=== PATIENT | male | born 1990 | race Caucasian/White ===

== ENCOUNTER 2017-09-13 11:12 | Emergency (ER) | payer OTHER ==
[~2017-09-13] VITALS: Ht 188 cm; Wt 83.9 kg
[~2017-09-13 11:12] MED LIST: DOXYCYCLINE HYC50 MG PO
[2017-09-13] MEDS ORDERED: NORCO 5-325 TA1 EACH PO (11:23)
[2017-09-13] MEDS ORDERED: ONDANSETRON ODT8 MG PO (13:16)
--- NOTE | 2017-09-13 14:48 | EKG ---
[facility] [address] [facility] [place] [address] Signed Normal sinus rhythm ST elevation, probably due to early repolarization Borderline ECG No previous ECGs available Confirmed by JARVIS TILLMAN MD ([id number]) on 09/13/2017 2:48:04 PM Electronically Signed By: JARVIS TILLMAN MD 09/13/17 1448 PATIENT NAME: STACEY FUNES CHELLY Electrocardiogram DATE OF : 86 PHYSICIAN: JARVIS TILLMAN MD REPORT #: [id number] REPORT IS CONFIDENTIAL AND NOT TO BE RELEASED WITHOUT AUTHORIZATION
== END 2017-09-13 13:22 | disposition home or self-care (01) ==
LOC: ED 11:12
DX: R07.89 Other chest pain (principal); M54.2 Cervicalgia; Z88.5 Allergy status to narcotic agent; Z79.899 Other long term (current) drug therapy
CPT/HCPCS: 93005; 93010; 99284

== ENCOUNTER 2017-09-27 12:47 | Emergency (ER) | payer OTHER ==
[~2017-09-27] VITALS: Ht 188 cm; Wt 83.9 kg
[~2017-09-27 12:47] MED LIST changes: +NORCO 5-325 TA1 EACH PO; +ONDANSETRON ODT8 MG PO
[2017-09-27] MEDS ORDERED: LIDOCAINE1 EACH TD (13:30)
[2017-09-27] MEDS ORDERED: DULOXETINE HCL60 MG PO (13:31)
[2017-09-27] MEDS ORDERED: CYCLOBENZAPRINE10 MG PO (13:31)
[2017-09-27] MEDS ORDERED: METHYLPREDNISOLO4 M1 PO (13:31)
[2017-09-27] MEDS ORDERED: TIZANIDINE HCL4 MG PO (13:32)
[2017-09-27] MEDS ORDERED: MELOXICAM15 MG PO (13:32)
--- NOTE | 2017-09-27 19:18 | EKG ---
[facility] [address] [facility] [place] [address] Signed Normal sinus rhythm with sinus arrhythmia Nonspecific ST and T wave abnormality Abnormal ECG When compared with ECG of 13-SEP-2017 11:17, No significant change was found Confirmed by JARVIS TILLMAN MD ([id number]) on 09/27/2017 7:18:04 PM Electronically Signed By: JARVIS TILLMAN MD 09/27/17 1918 PATIENT NAME: FUNESSTACEY Electrocardiogram DATE OF : 86 PHYSICIAN: JARVIS TILLMAN MD REPORT #: [id number] REPORT IS CONFIDENTIAL AND NOT TO BE RELEASED WITHOUT AUTHORIZATION
== END 2017-09-27 15:04 | disposition home or self-care (01) ==
LOC: ED 12:47
DX: R07.9 Chest pain, unspecified (principal); Z79.899 Other long term (current) drug therapy; Z88.5 Allergy status to narcotic agent
CPT/HCPCS: 71010; 80053; 84484; 85025; 93005; 93010; 96374; 96375; 99284; J1885; J2405

== ENCOUNTER 2021-10-18 05:58 | Emergency (ER) | payer OTHER ==
[~2021-10-18] VITALS: Ht 188 cm; Wt 83.9 kg
[~2021-10-18 05:58] MED LIST changes: +CYCLOBENZAPRINE10 MG PO; +DULOXETINE HCL60 MG PO; +LIDOCAINE1 EACH TD; +MELOXICAM15 MG PO; +METHYLPREDNISOLO4 M1 PO; +TIZANIDINE HCL4 MG PO
--- OUTSIDE RECORDS SUMMARY | 2021-10-18 06:02 | XMS ---
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 Emily VISIT COUNT (12 MO.) [address] TOTAL 2 NOTE: Visits indicate total known visits. ED/UCC VISIT TRACKING (12 MO.) 10/18/2021 05:59 [facility] [place] TYPE: Emergency COMPLAINT: - CHEST AND ABDOMINAL PAIN 10/05/2021 18:41 [facility] [place] TYPE: Emergency DIAGNOSES: - COVID-19 - COVID SCREENING FEVER BODY ACHES INPATIENT VISIT TRACKING (12 MO.) No inpatient visits to display in this time frame [email or web address]
[2021-10-18] MEDS ORDERED: OMEPRAZOLE20 MG PO (07:41)
--- NOTE | 2021-10-21 11:24 | EKG ---
[facility] [address] [facility] [place], [place] [address] Signed Normal sinus rhythm Normal ECG When compared with ECG of 27-SEP-2017 13:53, No significant change was found Confirmed by JARVIS TILLMAN MD ([id number]) on 10/21/2021 11:24:29 AM Electronically Signed By: JARVIS TILLMAN MD 10/21/21 1124 PATIENT NAME: SHANTELSTACEY CHELLY Electrocardiogram DATE OF : 86 PHYSICIAN: JARVIS TILLMAN MD REPORT #: [id number] REPORT IS CONFIDENTIAL AND NOT TO BE RELEASED WITHOUT AUTHORIZATION
== END 2021-10-18 08:13 | disposition home or self-care (01) ==
LOC: ED 05:58
DX: K30 Functional dyspepsia (principal); Z88.5 Allergy status to narcotic agent; Z79.899 Other long term (current) drug therapy
CPT/HCPCS: 71045; 80053; 81001; 83690; 84484; 85025; 85379; 93005; 93010; 96374; 96375; 99284-25; C9113; J2405; J7030

== ENCOUNTER 2022-12-23 20:10 | Emergency (ER) | payer OTHER ==
[~2022-12-23] VITALS: Ht 188 cm; Wt 97.5 kg
[~2022-12-23 20:10] MED LIST changes: +OMEPRAZOLE20 MG PO
--- OUTSIDE RECORDS SUMMARY | 2022-12-23 20:13 | XMS ---
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 Emily VISIT COUNT (12 MO.) [address] [place] [address] [facility] TOTAL 2 NOTE: Visits indicate total known visits. ED/UCC VISIT TRACKING (12 MO.) 12/23/2022 20:12 [facility] [place] TYPE: Emergency COMPLAINT: - 23 FT FALL 06/13/2022 11:51 [facility] [place] TYPE: Emergency DIAGNOSES: - Unspecified sprain of right foot, initial encounter - R ANKLE FOOT INJURY BACK PAIN - Sprain of unspecified ligament of right ankle, initial encounter INPATIENT VISIT TRACKING (12 MO.) No inpatient visits to display in this time frame [email or web address]
[2022-12-23] MEDS ORDERED: HYDROCODON-ACE1 EA10 PO (22:33)
== END 2022-12-23 22:41 | disposition home or self-care (01) ==
LOC: ED 20:10
DX: S00.31XA Abrasion of nose, initial encounter (principal); S00.81XA Abrasion of other part of head, initial encounter; S30.810A Abrasion of lower back and pelvis, initial encounter; S50.811A Abrasion of right forearm, initial encounter; W17.89XA Other fall from one level to another, initial encounter; M25.511 Pain in right shoulder; Z88.5 Allergy status to narcotic agent; Z79.899 Other long term (current) drug therapy
CPT/HCPCS: 36415; 70450; 71045; 71260; 72125; 73030; 73610; 74177; 80053; 82150; 85025; 86850; 86900; 86901; 96375; 96376; 99284-25; A9270; G0480; J1170; J2405; J7030; Q9967